=== PATIENT | male | born 1960 | race Caucasian/White ===

== ENCOUNTER → 2018-05-21 | Outpatient (CLI) | payer BC ==
--- NOTE | 2018-05-21 16:24 | Diagnostic Imaging Report ---
Exams: Brain MRI and cervical MRA without IV contrast History: Syncope, collapse Comparison studies: None. Technique: Brain MRI: Axial DWI, axial T2*GRE, axial and coronal T2 flair, axial T1 FLAIR, and sagittal axial T2 FS. Cervical MRA: Axial 2-D [id number] with 3-D MIP reformats. Intravenous contrast: None Findings: Brain: Scalp: No abnormal signal. No masses. Bone marrow: Normal in signal intensity. Brain sulci: Appropriate for patient's age. Ventricles: Normal in size. No hydrocephalus. Extra axial spaces: No mass, no fluid collection. Parenchyma: No mass, hemorrhage or acute ischemia. A few scattered and mildly confluent-appearing periventricular T2 FLAIR hyperintense foci in the supratentorial white matter are nonspecific but most compatible with chronic microvascular ischemic changes. Suprasellar region: No abnormalities. Craniocervical junction: No abnormalities. The foramen magnum is patent. No Chiari malformations. Vessels: Normal flow-voids in the arteries and sinuses. Cervical MRA: If present, stenosis is calculated utilizing the NASCET method which calculates the degree of stenosis with reference to the normal lumen of the carotid artery distal to the stenosis. Common carotid arteries: Patent, no flow abnormalities. Carotid bulbs: No (0%) stenosis bilaterally. Internal carotid arteries: Patent, mildly tortuous, no flow abnormalities. Vertebral arteries: Patent, no flow abnormalities. Right vertebral artery is dominant. Incidental findings: Chronic inflammatory changes in the atelectatic right maxillary sinus presumably due to obstruction at the level of the maxillary ostium. Right max a sinus is with chronic mucoperiosteal thickening and contains T1 hyperintense inspissated secretions. IMPRESSION: Brain: 1. No acute ischemia or other acute intracranial abnormalities 2. Mild to moderate supratentorial chronic microvascular ischemic changes. 3. Chronic inflammatory changes in the right maxillary sinus. Cervical and intracranial MRAs: 1. Patent carotid and vertebral arteries without flow limiting stenosis. 2. No (0%) stenosis at the cervical carotid bulbs. Signed by: Dr. Jj Mendez M.D. on 05/21/2018 4:21 PM
== END ==
LOC: MRI 14:04 → EDBD 15:00
PROVIDERS: ATTEND Family Medicine
DX: R55 Syncope and collapse (principal)
CPT/HCPCS: 70547; 70551; 93306